=== PATIENT | male | born 1965 | race Two or more races ===

== ENCOUNTER 2018-05-12 13:07 | Outpatient (CLI) | payer OTHER | END 2018-05-12 13:13 | disposition home or self-care (01) | LOC: RAD 13:07 | DX: K57.32 Diverticulitis of large intestine without perforation or abscess without bleeding (principal); R19.4 Change in bowel habit; R10.32 Left lower quadrant pain ==

== ENCOUNTER 2018-05-25 09:30 | Inpatient (IN) | payer OTHER ==
[~2018-05-25] VITALS: Ht 180.3 cm; Wt 102.1 kg
[2018-05-25] MEDS ORDERED: VASOTEC20 M1 PO (11:12)
[2018-05-25] MEDS ORDERED: METFORMIN HCL500 MG PO (11:12)
[2018-05-25] MEDS ORDERED: ZOCOR20 MG PO (11:12)
[2018-05-25] MEDS ORDERED: NEURONTIN800 MG PO (11:13)
[2018-06-11] MEDS ORDERED: INTESTINEX680 M1 PO (08:26)
[2018-06-11] MEDS ORDERED: OXYC1TAB9 PO (08:26)
[2018-06-11] MEDS ORDERED: LEVSIN/SL0.125 MG PO (08:26)
[2018-06-11] MEDS ORDERED: KETO10TA2 PO (08:27)
[2018-06-11] MEDS ORDERED: PROTONIX40 MG PO (08:27)
== END 2018-06-11 10:25 | disposition home or self-care (01) | DRG 331 ==
LOC: EDUNIT# 09:30 → SURG 06-01 09:30 → O/R 06-08 05:30 → SURG 06-08 05:30
PROVIDERS: Surgery
PROC: 0DJD8ZZ Inspection of Lower Intestinal Tract, Via Natural or Artificial Opening Endoscopic (ICD-10-PCS; 2018-06-08)
PROC: 4A12X4Z Monitoring of Cardiac Electrical Activity, External Approach (ICD-10-PCS; 2018-06-08)
PROC: 0DTP4ZZ Resection of Rectum, Percutaneous Endoscopic Approach (ICD-10-PCS; 2018-06-08)
PROC: 0DTN4ZZ Resection of Sigmoid Colon, Percutaneous Endoscopic Approach (ICD-10-PCS; principal; 2018-06-08 16:00)
DX: K57.32 Diverticulitis of large intestine without perforation or abscess without bleeding (principal); I11.9 Hypertensive heart disease without heart failure; E11.9 Type 2 diabetes mellitus without complications; G47.33 Obstructive sleep apnea (adult) (pediatric); E78.00 Pure hypercholesterolemia, unspecified

== ENCOUNTER 2019-10-23 11:15 | Day surgery (SDC) | payer OTHER ==
[~2019-10-23 11:15] MED LIST: INTESTINEX680 M1 PO; KETO10TA2 PO; LEVSIN/SL0.125 MG PO; METFORMIN HCL500 MG PO; NEURONTIN800 MG PO; OXYC1TAB9 PO; PROTONIX40 MG PO; VASOTEC20 M1 PO; ZOCOR20 MG PO
== END 2019-10-23 14:55 | disposition home or self-care (01) ==
LOC: AMB-ENDOS 11:15
DX: K57.32 Diverticulitis of large intestine without perforation or abscess without bleeding (principal)